=== PATIENT | male | born 1995 | race Caucasian/White ===

== ENCOUNTER 2016-12-28 13:05 | Emergency (ER) | payer OTHER ==
[~2016-12-28] VITALS: Ht 172.7 cm; Wt 84.4 kg
[2016-12-28 14:47] LABS: MONONUCLEOSIS PATIENT NEGATIVE (NEGATIVE)
[2016-12-28] MEDS ORDERED: AZIT250T PO (14:51)
--- NOTE | 2016-12-28 14:53 | PHYS DOC ---
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 Pt states past 4 days sore throat, fever, POLLACK, body aches. Able to drink liquids not eating much, has been trying to let things run their course but with body aches today came to be seen. No known sick contacts, no difficulty breathing or swallowing. No prearrival treatment pt normally healthy. Timing/Duration: last week Severity: severe Location: throat Prearrival Treatment: over the counter meds Modifying Factors: worse with coughing Associated Symptoms: cough, fever, malaise, nasal congestion/drainage, poor solids intake, sore throat Allergies: Coded Allergies: No Known Drug Allergies (Unverified , 04/20/16) Past Medical History Medical History: no pertinent history Surgical History: appendectomy, tonsillectomy Social History Smoker: non-smoker Alcohol: none Drugs: none Constitutional: see HPI Ears: denies dizziness, denies pain, denies tinnitus Nose: denies clots, congestion, denies epistaxis Throat: see HPI Respiratory: cough, denies shortness of breath, denies wheezing Cardiovascular: denies chest pain, denies palpitations Gastrointestinal: denies abdominal pain, denies nausea, denies vomiting Neurological: headache, denies numbness, denies paresthesia Physical Exam General Appearance: WD/WN, no apparent distress Eyes: bilateral eye normal inspection, bilateral eye PERRL, bilateral eye EOMI Nose: normal inspection Mouth/Throat: other (pharynx beefy red with exudate) Neck: supple, trachea midline, lymphadenopathy (R), lymphadenopathy (L) Cardiovascular/Respiratory: normal breath sounds, no respiratory distress Neurologic/Psychiatric: home health rn II-XII nml as tested, no motor/sensory deficits, alert, normal mood/affect, oriented x 3 Orders, Labs, Meds strep/mono neg Departure Time of Disposition: 14:52 Disposition: 01 HOME, SELF-CARE Diagnosis: pharyngitis Condition: GOOD Patient Instructions: Viral and Bacterial Pharyngitis, Ulom-ow-Dcol Additional Instructions: Rest, no strenuous activity. Work excuse a few days if needed. Aggressive hydration with gatorade, water. OTC tylenol, ibuprofen, and analgesic throat sprays as needed. Rx: zithromax Follow up with a doctor in 7-10 days if not better. Return to ED with new or changing symptoms. GORDY KOROMA DO December 28, 2016 14:53
[2016-12-28 15:00] VITALS: BP 121/66
== END 2016-12-28 15:17 | disposition home or self-care (01) ==
LOC: ER 13:05
DX: J02.9 Acute pharyngitis, unspecified (principal); R51 Headache
CPT/HCPCS: 86308; 87070; 87880; 99284

== ENCOUNTER 2017-06-01 07:13 | Emergency (ER) | payer OTHER ==
[~2017-06-01] VITALS: Ht 172.7 cm; Wt 80.7 kg
[~2017-06-01 07:13] MED LIST: AZIT250T PO
--- NOTE | 2017-06-01 07:43 | ED.ADGEN ---
Past History Past Medical History: No Pertinent History (ADD) Past Surgical History: Appendectomy, Tonsillectomy Smoking: Non-smoker Alcohol Use: None Drug Use: None General Abdominal Assessment Chief Complaint Left lower quadrant pain with bloody stools History of Present Illness Patient is a 22-year-old male who comes private auto complaining of left lower quadrant abdominal pain and bright red bloody stools. Patient states that recently he's been having darker stools than normal. The past 3 days he's had worsening bright red bloody loose stools. He denies any fever he's had no pain with defecation and states he is familiar with hemorrhoids and denies any symptoms. States he is heterosexual and denies any foreign bodies to the anus. He denies any straining on the toilet or heavy lifting increased from his baseline. No travel or bad food exposure no nausea vomiting or abdominal bloating. He denies any knowledge of family history colon cancer or diverticulosis and he hasn't been having any lightheadedness, headache, chest pain or palpitations while up and active. His appetite has remained normal and his appendix was removed years ago. 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 His emergency department vitals are stable he denies any excess alcohol or NSAID intake. Review of Systems Constitutional: Denies fever or chills [] Eyes: Denies change in visual acuity, redness, or eye pain [] HENT: Denies nasal congestion or sore throat [] Respiratory: Denies cough or shortness of breath [] Cardiovascular: No chest pain or palpitations GI: See history of present illness : Denies dysuria or hematuria [] Musculoskeletal: Denies back pain or joint pain [] Integument: Denies rash or skin lesions [] Neurologic: Denies headache, focal weakness or sensory changes [] Endocrine: Denies polyuria or polydipsia [] Family History Noncontributory Current Medication Current Medications Medications (Trade) Dose Ordered Sig/Halima Start Time Stop Time Status Last Admin Dose Admin Iohexol (Omnipaque 240 Mg/ml) 30 ml 1X ONCE 06/01/17 08:00 06/01/17 08:01 DC 06/01/17 08:56 30 ML Iohexol (Omnipaque 300 Mg/ml) 75 ml 1X ONCE 06/01/17 08:00 06/01/17 08:01 DC Ketorolac Tromethamine (Toradol) 30 mg 1X ONCE 06/01/17 08:00 06/01/17 08:01 DC 06/01/17 07:57 30 MG Ondansetron HCl (Zofran) 4 mg 1X ONCE 06/01/17 08:00 06/01/17 08:01 DC 06/01/17 07:57 4 MG Sodium Chloride 1,000 ml @ 1,000 mls/hr Q1H 06/01/17 08:00 06/01/17 09:00 DC 06/01/17 07:58 1,000 MLS/HR ADD meds Allergies Allergies Coded Allergies Type Severity Reaction Last Updated Verified No Known Drug Allergies 04/20/16 No Physical Exam Constitutional: Well developed, well nourished, no acute distress, non-toxic appearance. [] HENT: Normocephalic, atraumatic, bilateral external ears normal, mildly dry membranes, no oral exudates, nose normal. [] Eyes: PERRLA, EOMI, conjunctiva normal, no discharge. [] Neck: Normal range of motion, no tenderness, supple, no stridor. [] Cardiovascular:Heart rate regular rhythm Lungs & Thorax: Bilateral breath sounds clear to auscultation [] Abdomen: Patient refuses rectal exam. Bowel sounds normal, soft, nondistended, left lower quadrant tenderness to palpation without rebound guarding or masses no skin changes or evidence of trauma Skin: Mild pallor no bruises or skin changes associated with bleeding disorder Back: No tenderness, no CVA tenderness. [] Extremities: No tenderness, no cyanosis, no clubbing, ROM intact, no edema. [] Neurologic: Alert and oriented X 3, normal motor function, normal sensory function, no focal deficits noted. [] Psychologic: Affect normal, judgement normal, mood normal. [] EKG Results [] Monitoring [employer]PERATOR The patient was on telemetry monitoring during their ER evaluation and displayed a regular rate and rhythm without ectopy present per my interpretation. [] PULSE OXIMETRY The patient maintained their pulse oximetry readings above 90 percent during their evaluation per my interpretation.[] Radiology/Procedures [] Current Data Laboratory Tests Test 06/01/17 07:35 06/01/17 07:50 Stool Occult Blood Negative (NEG) White Blood Count 10.7 x10^3/uL (4.0-11.0) Red Blood Count 5.77 x10^6/uL (4.30-5.70) H Hemoglobin 16.6 g/dL (13.0-17.5) Hematocrit 49.4 % (39.0-53.0) Mean Corpuscular Volume 86 fL (79-100) Mean Corpuscular Hemoglobin 29 pg (25-35) Mean Corpuscular Hemoglobin Concent 34 g/dL (31-37) Red Cell Distribution Width 13.8 % (11.5-14.5) Platelet Count 336 x10^3/uL (140-400) Neutrophils (%) (Auto) 59 % (31-73) Lymphocytes (%) (Auto) 30 % (24-48) Monocytes (%) (Auto) 7 % (0-9) Eosinophils (%) (Auto) 3 % (0-3) Basophils (%) (Auto) 0 % (0-3) Neutrophils # (Auto) 6.3 x10^3uL (1.8-7.7) Lymphocytes # (Auto) 3.2 x10^3/uL (1.0-4.8) Monocytes # (Auto) 0.8 x10^3/uL (0.0-1.1) Eosinophils # (Auto) 0.4 x10^3/uL (0.0-0.7) Basophils # (Auto) 0.0 x10^3/uL (0.0-0.2) Sodium Level 140 mmol/L (136-145) Potassium Level 3.5 mmol/L (3.5-5.1) Chloride Level 101 mmol/L (98-107) Carbon Dioxide Level 29 mmol/L (21-32) Anion Gap 10 (6-14) Blood Urea Nitrogen 13 mg/dL (8-26) Creatinine 0.9 mg/dL (0.7-1.3) Estimated GFR (Cockcroft-Gault) 105.5 BUN/Creatinine Ratio 14 (6-20) Glucose Level 97 mg/dL (70-99) Lactic Acid Level 1.6 mmol/L (0.4-2.0) Calcium Level 9.4 mg/dL (8.5-10.1) Total Bilirubin 0.2 mg/dL (0.2-1.0) Aspartate Amino Transf (AST/SGOT) 28 U/L (15-37) Alanine Aminotransferase (ALT/SGPT) 56 U/L (16-63) Alkaline Phosphatase 83 U/L (46-116) Total Protein 8.1 g/dL (6.4-8.2) Albumin 4.6 g/dL (3.4-5.0) Albumin/Globulin Ratio 1.3 (1.0-1.7) Lipase 236 U/L (73-393) Active Scripts Medications Dose Route/Sig Max Daily Dose Days Date Category Zithromax (Azithromycin) 250 Mg Tablet 1 Pkg PO UD 12/28/16 Rx Vital Signs Date Time Temp Pulse Resp B/P (MAP) Pulse Ox O2 Delivery O2 Flow Rate FiO2 06/01/17 07:22 98.0 88 16 98 Room Air Vital Signs Date Time Temp Pulse Resp B/P (MAP) Pulse Ox O2 Delivery O2 Flow Rate FiO2 06/01/17 07:22 98.0 88 16 98 Room Air Vital Signs Date Time Temp Pulse Resp B/P (MAP) Pulse Ox O2 Delivery O2 Flow Rate FiO2 06/01/17 07:22 98.0 88 16 98 Room Air Course & Med Decision Making Pertinent Labs and Imaging studies reviewed. (See chart for details) []I discussed digital rectal exam and the inability to rule out hemorrhoids or anal fissures without performing one, pt restates his request to not have test. However in the context of left lower quadrant abdominal discomfort and the absence of pain with defecation those conditions are less likely. Patient agrees to give us a stool specimen for Hemoccult testing as well as to look for infectious etiology. CT with oral and IV contrast within the completed to rule out possibility of diverticulitis. Patient is not requesting any pain medications at this time and he is agreeable to the workup. 0854: Time in department 1h [address] not yet completed, hemoccult not resulted. CBC/lactic acid/CMP unremarkable, pt will have prolonged ED course due to lab/rad delay. PATIENT: LORRAINE ANTHONY ACCOUNT: [id number] : 1995 LOCATION: ER AGE: 22 SEX: M EXAM STATUS: REG ER ORD. PHYSICIAN: GORDY KOROMA DO REASON: LLQ abdominal pain, bloody stools PROCEDURE: CT ABD PELV W/ORAL&IV CONTRAST CT ABDOMEN AND PELVIS WITH IV CONTRAST History: LLQ abdominal pain, bloody stools Comparison: CT abdomen and pelvis dated 04/20/2016. Technique: After administration of oral and intravenous contrast, helical CT of the abdomen and pelvis was performed from the lung bases through the ischial tuberosities. Axial and coronal reconstructions were obtained. 75 mL of Omnipaque 300 were used. Abdomen Findings: The visualized lung bases are clear. The liver, spleen, pancreas, gallbladder, and bilateral adrenal glands are normal. Bilateral kidneys enhance symmetrically. There is no focal renal mass. There is no hydronephrosis. Visualized loops of large and small bowel are normal. There is no evidence of bowel obstruction. Interval appendectomy. Radiopaque foreign body in the rectum may relate to ingested medicine. There is no free fluid. There is no abdominal or retroperitoneal adenopathy. The abdominal aorta is normal in caliber. Pelvis findings: Urinary bladder is normal. Normal prostate and seminal vesicles. There is no free fluid. There is no pelvic or inguinal adenopathy. There is no acute bony abnormality. IMPRESSION: No acute intra-abdominal or intrapelvic process. PQRS Compliance Statement: One or more of the following individualized dose reduction techniques were utilized for this examination: 1. Automated exposure control 2. Adjustment of the mA and/or kV according to patient size 3. Use of iterative reconstruction technique PQRS Compliance Statement: One or more of the following individualized dose reduction techniques were utilized for this examination: 1. Automated exposure control 2. Adjustment of the mA and/or kV according to patient size 3. Use of iterative reconstruction technique DICTATED AND SIGNED BY: AMBER WYATT MD DATE: 06/01/17913 CC: TEOFILO REED; GORDY KOROMA DO ~ Critical Care Time Critical care time was [] minutes exclusive of procedures. Final Impression [] Problems: Departure Time of Disposition: 09:35 Disposition: 01 HOME, SELF-CARE Diagnosis: screening medical exam Condition: GOOD Patient Instructions: Medical Screening Exam Additional Instructions: As discussed, your blood tests and CT were normal today and stool specimen showed no evidence of blood. Other stool studies are pending, those results will be available to your doctor in 2-3 days. [place] diet, aggressive hydration with Gatorade and water. [id number] Tylenol as needed. Follow-up at [facility] this week. Return to ED with new or changing symptoms. GORDY KOROMA DO Jun 01, 2017 07:43
[2017-06-01] MEDS ORDERED: KETOROLAC 30 MG/ML VIAL. IV ONE (08:00)
[2017-06-01] MEDS ORDERED: IOHEXOL 240 MG/ML 50ML VIAL. PO ONE (08:00)
[2017-06-01] MEDS ORDERED: ONDANSETRON PF 4 MG/2 ML VIAL. IV ONE (08:00)
[2017-06-01] MEDS ORDERED: IOHEXOL 300 MG/ML 75 ML VIAL. IV ONE (08:00)
[2017-06-01] MEDS ORDERED: IV NORMAL SALINE 1,000ML 1,000 ML IV SCH (08:00)
[2017-06-01 08:19] LABS: ALBUMIN 4.6 g/dL (3.4-5.0); ALBUMIN/GLOBULIN RATIO 1.3 (1.0-1.7); CALCIUM 9.4 mg/dL (8.5-10.1); CREATININE 0.9 mg/dL (0.7-1.3); GFR 105.5; POTASSIUM 3.5 mmol/L (3.5-5.1); TOTAL BILIRUBIN 0.2 mg/dL (0.2-1.0); TOTAL PROTEIN 8.1 g/dL (6.4-8.2)
[2017-06-01 08:22] LABS: BASO % 0 % (0-3); EOS # 0.4 x10^3/uL (0.0-0.7); EOS % 3 % (0-3); HEMATOCRIT 49.4 % (39.0-53.0); HEMOGLOBIN 16.6 g/dL (13.0-17.5); LYMPH # 3.2 x10^3/uL (1.0-4.8); LYMPH % 30 % (24-48); MEAN CORPUSCULAR HEMOGLOBIN 29 pg (25-35); MEAN CORPUSCULAR HGB CONC 34 g/dL (31-37); MEAN CORPUSCULAR VOLUME 86 fL (79-100); MONO # 0.8 x10^3/uL (0.0-1.1); MONO % 7 % (0-9); NEUT # 6.3 x10^3uL (1.8-7.7); NEUT % 59 % (31-73); PLATELET COUNT 336 x10^3/uL (140-400); RED BLOOD COUNT 5.77 x10^6/uL (4.30-5.70); RED CELL DISTRIBUTION WIDTH 13.8 % (11.5-14.5); WHITE BLOOD COUNT 10.7 x10^3/uL (4.0-11.0)
[2017-06-01 08:53] LABS: FECAL OB PT NEGATIVE (NEG)
--- NOTE | 2017-06-01 09:26 | RAD ---
CT ABDOMEN AND PELVIS WITH IV CONTRAST History: LLQ abdominal pain, bloody stools Comparison: CT abdomen and pelvis dated 04/20/2016. Technique: After administration of oral and intravenous contrast, helical CT of the abdomen and pelvis was performed from the lung bases through the ischial tuberosities. Axial and coronal reconstructions were obtained. 75 mL of Omnipaque 300 were used. Abdomen Findings: The visualized lung bases are clear. The liver, spleen, pancreas, gallbladder, and bilateral adrenal glands are normal. Bilateral kidneys enhance symmetrically. There is no focal renal mass. There is no hydronephrosis. Visualized loops of large and small bowel are normal. There is no evidence of bowel obstruction. Interval appendectomy. Radiopaque foreign body in the rectum may relate to ingested medicine. There is no free fluid. There is no abdominal or retroperitoneal adenopathy. The abdominal aorta is normal in caliber. Pelvis findings: Urinary bladder is normal. Normal prostate and seminal vesicles. There is no free fluid. There is no pelvic or inguinal adenopathy. There is no acute bony abnormality. IMPRESSION: No acute intra-abdominal or intrapelvic process. PQRS Compliance Statement: One or more of the following individualized dose reduction techniques were utilized for this examination: 1. Automated exposure control 2. Adjustment of the mA and/or kV according to patient size 3. Use of iterative reconstruction technique PQRS Compliance Statement: One or more of the following individualized dose reduction techniques were utilized for this examination: 1. Automated exposure control 2. Adjustment of the mA and/or kV according to patient size 3. Use of iterative reconstruction technique
== END 2017-06-01 09:48 | disposition home or self-care (01) ==
LOC: ER 07:13
DX: Z00.00 Encounter for general adult medical examination without abnormal findings (principal); R10.32 Left lower quadrant pain; K92.1 Melena; Z90.49 Acquired absence of other specified parts of digestive tract
CPT/HCPCS: 36415; 74177; 80053; 82274; 83605; 83690; 85025; 87045; 87177; 96361; 96374; 96375; 99285; J1885; J2405; Q9966; J7030

== ENCOUNTER 2017-08-07 17:31 | Emergency (ER) | payer OTHER ==
[~2017-08-07] VITALS: Ht 172.7 cm; Wt 81.6 kg
[2017-08-07] MEDS ORDERED: KETOROLAC 30 MG/ML VIAL. IV ONE (18:30)
[2017-08-07] MEDS ORDERED: IV NORMAL SALINE 1,000ML 1,000 ML IV ONE (18:30)
[2017-08-07 18:31] LABS: BASO % 0 % (0-3); EOS # 0.1 x10^3/uL (0.0-0.7); EOS % 2 % (0-3); HEMATOCRIT 48.2 % (39.0-53.0); HEMOGLOBIN 16.6 g/dL (13.0-17.5); LYMPH # 0.7 x10^3/uL (1.0-4.8); LYMPH % 8 % (24-48); MEAN CORPUSCULAR HEMOGLOBIN 30 pg (25-35); MEAN CORPUSCULAR HGB CONC 34 g/dL (31-37); MEAN CORPUSCULAR VOLUME 87 fL (79-100); MONO # 0.7 x10^3/uL (0.0-1.1); MONO % 8 % (0-9); NEUT # 7.6 x10^3uL (1.8-7.7); NEUT % 83 % (31-73); PLATELET COUNT 249 x10^3/uL (140-400); RED BLOOD COUNT 5.52 x10^6/uL (4.30-5.70); RED CELL DISTRIBUTION WIDTH 13.1 % (11.5-14.5); WHITE BLOOD COUNT 9.1 x10^3/uL (4.0-11.0)
[2017-08-07 18:39] LABS: INFLUENZA A PATIENT NEGATIVE (NEGATIVE); INFLUENZA B PATIENT NEGATIVE (NEGATIVE)
[2017-08-07 18:44] LABS: ALBUMIN 4.3 g/dL (3.4-5.0); ALBUMIN/GLOBULIN RATIO 1.7 (1.0-1.7); CALCIUM 9.1 mg/dL (8.5-10.1); CREATININE 1.1 mg/dL (0.7-1.3); GFR 83.7; POTASSIUM 4.4 mmol/L (3.5-5.1); TOTAL BILIRUBIN 0.6 mg/dL (0.2-1.0); TOTAL PROTEIN 6.9 g/dL (6.4-8.2)
[2017-08-07] MEDS ORDERED: ONDANSETRON PF 4 MG/2 ML VIAL. IV ONE (18:45)
[2017-08-07] MEDS ORDERED: MORPHINE SULFATE 4 MG/ML DISP.SYRIN. IV ONE ×2 (19:45→20:15)
[2017-08-07 20:49] VITALS: BP 120/58
--- NOTE | 2017-08-08 02:40 | ED.ADGEN ---
Past History Past Medical History: No Pertinent History Past Surgical History: Appendectomy, Tonsillectomy Smoking: Non-smoker Alcohol Use: None Drug Use: None Adult General Chief Complaint Chief Complaint Fevers chills body aches HPI HPI Patient is a 22-year-old male presents with his congestion, rhinorrhea, sore throat body aches. Symptom onset was yesterday. Patient states he feels lightheaded and dizzy. Seen by his primary care physician and diagnosed with influenza. Patient states symptoms gradually worse. Reports mild headache, diffuse back pain and myalgias. No photophobia, vomiting, rash or petechiae. No other acute symptoms or complaints.[] Review of Systems Review of Systems Review symptoms as per history of present illness. All other review symptoms are negative. All other systems were reviewed and found to be within normal limits, except as documented in this note. Current Medications Current Medications Current Medications Medications (Trade) Dose Ordered Sig/Halima Start Time Stop Time Status Last Admin Dose Admin Ketorolac Tromethamine (Toradol) 30 mg 1X ONCE 08/07/17 18:30 08/07/17 18:31 DC 08/07/17 18:36 30 MG Morphine Sulfate (Morphine 4mg Syringe) 4 mg 1X ONCE 08/07/17 20:15 08/07/17 20:16 DC 08/07/17 20:15 4 MG Ondansetron HCl (Zofran) 4 mg 1X ONCE 08/07/17 18:45 08/07/17 18:46 DC 08/07/17 18:45 4 MG Sodium Chloride 1,000 ml @ 1,000 mls/hr 1X ONCE 08/07/17 18:30 08/07/17 19:29 DC 08/07/17 18:35 1,000 MLS/HR Allergies Allergies Allergies Coded Allergies Type Severity Reaction Last Updated Verified No Known Drug Allergies 04/20/16 No Physical Exam Physical Exam Constitutional: Well developed, well nourished, uncomfortable secondary to pain. [] HENT: Normocephalic, atraumatic, bilateral external ears normal, oropharynx moist, no oral exudates, nose normal. [] Eyes: PERRLA, EOMI, conjunctiva normal, no discharge. [] Neck: Normal range of motion, no meningeal signs.. [] Cardiovascular:Heart rate regular rhythm, no murmur [] Lungs & Thorax: Bilateral breath sounds clear to auscultation [] Abdomen: Bowel sounds normal, soft, no tenderness, no masses, no pulsatile masses. [] Skin: Warm, dry, no erythema, no rash or petechiae. [] Back: Back pain, tenderness,, no localized CVA tenderness. [] Extremities: No tenderness, no cyanosis, no clubbing, ROM intact, no edema. [] Neurologic: Alert and oriented X 3, normal motor function, normal sensory function, no focal deficits noted. [] Psychologic: Affect normal, judgement normal, mood normal. [] Current Patient Data Vital Signs Vital Signs Date Time Temp Pulse Resp B/P (MAP) Pulse Ox O2 Delivery O2 Flow Rate FiO2 08/07/17 20:49 74 18 120/58 (78) 95 Room Air 08/07/17 17:31 98.5 Lab Results Laboratory Tests Test 08/07/17 17:55 08/07/17 18:10 Influenza Type A (Rapid) Negative (NEGATIVE) Influenza Type B (Rapid) Negative (NEGATIVE) Group A Streptococcus Rapid Negative (NEGATIVE) White Blood Count 9.1 x10^3/uL (4.0-11.0) Red Blood Count 5.52 x10^6/uL (4.30-5.70) Hemoglobin 16.6 g/dL (13.0-17.5) Hematocrit 48.2 % (39.0-53.0) Mean Corpuscular Volume 87 fL (79-100) Mean Corpuscular Hemoglobin 30 pg (25-35) Mean Corpuscular Hemoglobin Concent 34 g/dL (31-37) Red Cell Distribution Width 13.1 % (11.5-14.5) Platelet Count 249 x10^3/uL (140-400) Neutrophils (%) (Auto) 83 % (31-73) H Lymphocytes (%) (Auto) 8 % (24-48) L Monocytes (%) (Auto) 8 % (0-9) Eosinophils (%) (Auto) 2 % (0-3) Basophils (%) (Auto) 0 % (0-3) Neutrophils # (Auto) 7.6 x10^3uL (1.8-7.7) Lymphocytes # (Auto) 0.7 x10^3/uL (1.0-4.8) L Monocytes # (Auto) 0.7 x10^3/uL (0.0-1.1) Eosinophils # (Auto) 0.1 x10^3/uL (0.0-0.7) Basophils # (Auto) 0.0 x10^3/uL (0.0-0.2) Sodium Level 141 mmol/L (136-145) Potassium Level 4.4 mmol/L (3.5-5.1) Chloride Level 104 mmol/L (98-107) Carbon Dioxide Level 28 mmol/L (21-32) Anion Gap 9 (6-14) Blood Urea Nitrogen 17 mg/dL (8-26) Creatinine 1.1 mg/dL (0.7-1.3) Estimated GFR (Cockcroft-Gault) 83.7 BUN/Creatinine Ratio 15 (6-20) Glucose Level 106 mg/dL (70-99) H Calcium Level 9.1 mg/dL (8.5-10.1) Total Bilirubin 0.6 mg/dL (0.2-1.0) Aspartate Amino Transferase (AST) 19 U/L (15-37) Alanine Aminotransferase (ALT) 34 U/L (16-63) Alkaline Phosphatase 71 U/L (46-116) C-Reactive Protein 7.1 mg/L (0-3.3) H Total Protein 6.9 g/dL (6.4-8.2) Albumin 4.3 g/dL (3.4-5.0) Albumin/Globulin Ratio 1.7 (1.0-1.7) EKG EKG [] Radiology/Procedures Radiology/Procedures [] Course & Med Decision Making Course & Med Decision Making Pertinent Labs and Imaging studies reviewed. (See chart for details) [Flu-like illness. Symptoms significantly improved with treatment. Vital signs Stable. Patient states he's been much better and ready for discharge. Courtesy work note provided. Return precautions reviewed. Patient verbalizes on standing agreement discharge instructions prior to departure.] Final Impression Final Impression [1 flulike illness] Problems: Dragon Disclaimer Dragon Disclaimer This electronic medical record was generated, in whole or in part, using a voice recognition dictation system. ABIGAIL SHERIFF DO Aug 08, 2017 02:40
== END 2017-08-07 20:45 | disposition home or self-care (01) ==
LOC: ER 17:31
DX: J11.1 Influenza due to unidentified influenza virus with other respiratory manifestations (principal); R51 Headache
CPT/HCPCS: 36415; 80053; 85025; 86140; 87040; 87070; 87804; 87880; 96361; 96374; 96375; 99284; J1885; J2270; J2405; J7030